=== PATIENT | male | born 1970 | race African-American/Black ===

== ENCOUNTER 2016-06-18 | Emergency (ER) | payer OTHER ==
--- NOTE | 2016-06-18 16:10 | ED ---
General Adult HPI - General Chief complaint: Skin/Abscess/Foreign Body Stated complaint: lumps on both arms Time Seen by Provider: 06/18/16 15:42 Source: patient, RN notes reviewed Mode of arrival: ambulatory Limitations: no limitations - History of Present Illness Initial comments: This 46-year-old male presents with erythema and swelling to bilateral antecubital fossa and into the right side neck. Patient states these just appeared after he was getting out of the shower. Patient states they also itch. Patient states he has been using a new detergent but this is the only thing new in his routine. Patient is not on any medication. Patient denies any recent blood draws or plasma donation or IV drug use. Patient denies any fever/chills. Patient denies any pain to the areas of swelling. Patient states this has never happened before. Patient denies any recent shortness breath, chest pain, abdominal pain, nausea/vomiting/diarrhea, back pain, numbness, tingling, hematuria, headache, or visual changes, or any other complaints. - Related Data Previous Rx's Medication Instructions Recorded Cephalexin [Keflex] 500 mg PO Q12HR 5 Days 06/18/16 diphenhydrAMINE [Benadryl] 25 mg PO BID 3 Days 06/18/16 Allergies Allergy/AdvReac Type Severity Reaction Status Date / Time morphine AdvReac Nausea & Verified 06/18/16 15:41 Vomiting Review of Systems ROS Statement: Those systems with pertinent positive or pertinent negative responses have been documented in the HPI. ROS Other: All systems not noted in ROS Statement are negative. Past Medical History Additional Past Medical History / Comment(s): back pain History of Any Multi-Drug Resistant Organisms: MRSA Date of last positivie culture/infection: 03/13/15 MDRO Source:: BUTTOCK Past Surgical History: No Surgical Hx Reported Past Psychological History: No Psychological Hx Reported Smoking Status: Current every day smoker Past Alcohol Use History: Occasional Past Drug Use History: Marijuana General Exam - General Exam Comments Initial Comments: General: The patient is awake and alert, in no distress, and does not appear acutely ill. Neck: The neck is supple, there is no tenderness or JVD. Cardiovascular: There is a regular rate and rhythm. No murmur, rub or gallop is appreciated. Respiratory: Lungs are clear to auscultation, respirations are non-labored, breath sounds are equal. No wheezes, stridor, rales, or rhonchi. Musculoskeletal: Full range of motion, strength 5/5 in Sensation intact. Radial pulses 2+ bilaterally. Neurological: A&O x 3. CN II-XII intact, There are no obvious motor or sensory deficits. Coordination appears grossly intact. Speech is normal. Skin: There is an area of erythema, warmth, swelling to the left and right antecubital fossae. There is also a smaller area of erythema and mild swelling to the right side neck. None of these areas are tender to palpation. The areas are approximately 5 cm in diameter to the left antecubital fossa, 2 cm to the right antecubital fossa an approximately 1 cm in diameter to the right side neck. There are chronic scar is noted to the bilateral antecubital fossae. Skin is warm and dry and no rashes or lesions are noted. Psychiatric: Normal mood and affect. Limitations: no limitations Course Vital Signs 06/18/16 15:43 Temperature 97.1 F L Pulse Rate 89 Respiratory 18 Rate Blood Pressure 126/70 O2 Sat by Pulse 97 Oximetry Medical Decision Making - Medical Decision Making This 46-year-old male presents with swelling to bilateral arms and the neck that is pruritic. On physical exam There is an area of erythema, warmth, swelling to the left and right antecubital fossa. There is also a smaller area of erythema and mild swelling to the right side neck. None of these areas are tender to palpation. I discussed with patient that this could be a start of a cellulitis. I discussed the patient was given a course of antibiotics. I discussed the patient should also take Benadryl as he states these areas are pruritic and he has used a new soap. I discussed return parameters. I discussed the patient should follow-up with his PCP in one to 2 days or return to the [facility] for any worsening symptoms or for any further concerns. Patient was receptive to this plan and patient will be discharged home. Disposition Clinical Impression: Cellulitis Disposition: HOME SELF-CARE Condition: Good Instructions: Cellulitis (ED) Additional Instructions: Please finish the entire course of antibiotics. Please use Benadryl as prescribed. Please monitor for signs and symptoms of worsening erythema, swelling and warmth and tenderness. Please follow-up with the PCP in 1-2 days or return to the [facility] for any worsening symptoms or for any further concerns. Prescriptions: Cephalexin [Keflex] 500 mg PO Q12HR 5 Days diphenhydrAMINE [Benadryl] 25 mg PO BID 3 Days Referrals: Kaden Navarro MD [REFERRING] - 1-2 days Mica Barajas MD [STAFF PHYSICIAN] - 1-2 days Time of Disposition: 16:07
== END 2016-06-18 16:13 | disposition home or self-care (01) ==
CPT/HCPCS: 99282

== ENCOUNTER → 2017-03-09 | Outpatient (CLI) | payer OTHER ==
--- NOTE | 2017-03-09 11:49 | XR ---
EXAMINATION TYPE: XR chest 2V DATE OF EXAM: 03/09/2017 COMPARISON: NONE TECHNIQUE: PA and lateral views submitted. HISTORY: Wellness check FINDINGS: The lungs are clear and there is no pneumothorax, pleural effusion, or focal pneumonia. IMPRESSION: 1. No acute process.
--- NOTE | 2017-03-09 11:53 | XR ---
EXAM TYPE: LUMBAR SPINE X RAY SERIES COMPARISON: 09/24/2015 HISTORY: Lower back pain TECHNIQUE: 4 views are submitted. FINDINGS: Alignment is anatomic. The pedicles are intact. The transverse processes are intact. There is no s pondylolysis or spondylolisthesis. Hypertrophic and degenerative change of the spine noted. Hypertro phic changes result in foraminal encroachment at L3-S1 due to severe degenerative disc disease. IMPRESSION: 1. Severe multilevel degenerative disc disease correlate with MRI.
[2017-03-09 12:19] LABS: ALT 97 U/L (21-72); AST 61 U/L (17-59); Alkaline Phosphatase 96 U/L (38-126); Anion Gap 10 mmol/L; Blood Urea Nitrogen 15 mg/dL (9-20); Calcium 9.4 mg/dL (8.4-10.2); Carbon Dioxide 28 mmol/L (22-30); Chloride 102 mmol/L (98-107); Cholesterol 190 mg/dL (<200); Glucose 79 mg/dL (74-99); HDL Cholesterol 92 mg/dL (40-60); Non-African American GFR(MDRD) >60 (>60 ml/min/1.73 sqM); Potassium 4.4 mmol/L (3.5-5.1); Sodium 140 mmol/L (137-145); Total Bilirubin 0.9 mg/dL (0.2-1.3); Total Protein 7.7 g/dL (6.3-8.2)
[2017-03-09 12:29] LABS: CH 29.4; CHCM 31.1; HCT 46.6 % (39.0-53.0); HDW 2.58; HGB 14.3 gm/dL (13.0-17.5); Hypochromasia Slight; MCH 29.2 pg (25.0-35.0); MCHC 30.7 g/dL (31.0-37.0); MCV 95.1 fL (80.0-100.0); Mean Platelet Volume 6.7; RDW 12.2 % (11.5-15.5); WBC 4.4 k/uL (3.8-10.6)
[2017-03-09 12:49] LABS: Prostate Specific Antigen 2.59 ng/mL (0.00-4.00)
[2017-03-09 13:00] LABS: Appearance,Urine Clear (Clear); Bilirubin,Urine Negative (Negative); Glucose,Urine (UA) Negative (Negative); Ketones,Urine Negative (Negative); Leukocyte Esterase,Urine Trace (Negative); Nitrite,Urine Negative (Negative); PH, Urine 6.5 (5.0-8.0); Particle Count 355; Protein,Urine Negative (Negative); RBC,Urine <1 /hpf (0-5); Specific Gravity,Urine 1.008 (1.001-1.035); UA Billing (MACRO vs. MICRO) MICRO; Urobilinogen,Urine <2.0 mg/dL (<2.0); WBC,Urine 2 /hpf (0-5)
== END | disposition home or self-care (01) ==
LOC: RADXRMAIN 11:16
PROVIDERS: ATTEND Internal Medicine
DX: Z00.00 Encounter for general adult medical examination without abnormal findings (principal); I11.9 Hypertensive heart disease without heart failure; K21.0 Gastro-esophageal reflux disease with esophagitis; M54.5 Low back pain
CPT/HCPCS: 71020; 72110; 80053; 80061; 81001; 82272; 84153; 84439; 84443; 85027

== ENCOUNTER → 2017-04-06 | Outpatient (CLI) | payer OTHER ==
[2017-04-06 16:12] LABS: ALT 135 U/L (21-72); AST 79 U/L (17-59)
== END | disposition home or self-care (01) ==
LOC: LABWHC1 15:34
PROVIDERS: ATTEND Internal Medicine
DX: R94.5 Abnormal results of liver function studies (principal)
CPT/HCPCS: 36415; 84450; 84460

== ENCOUNTER → 2017-04-21 | Outpatient (CLI) | payer OTHER ==
--- NOTE | 2017-04-21 10:04 | US ---
EXAMINATION TYPE: US abdomen complete DATE OF EXAM: 04/21/2017 COMPARISON: NONE CLINICAL HISTORY: R94.5 ABN Liver Function Test. No symptoms per patient EXAM MEASUREMENTS: Liver Length: 16.2 cm Gallbladder Wall: 0.2 cm CBD: 0.5 cm Spleen: 10.6 cm Right Kidney: 11.8 x 5.9 x 5.4 cm Left Kidney: 11.6 x 5.2 x 6.0 cm Pancreas: wnl Liver: wnl Gallbladder: fundal fold seen Evidence for sonographic Castillo's sign: no CBD: wnl Spleen: wnl Right Kidney: wnl Left Kidney: wnl Upper IVC: wnl Abd Aorta: limited due to bowel gas The liver is homogenous. The intrahepatic portion of the IVC and proximal abdominal aorta are within normal limits. There is no evidence of cholelithiasis. Common bile duct is unremarkable. The visu alized portions of the pancreas are homogenous. The spleen is unremarkable. Kidneys are symmetric a nd free of hydronephrosis. No renal lesions are seen. IMPRESSION: No significant abnormality appreciated.
== END | disposition home or self-care (01) ==
LOC: RADUSWWP 09:05
PROVIDERS: ATTEND Internal Medicine
DX: R94.5 Abnormal results of liver function studies (principal)
CPT/HCPCS: 76700; 80074

== ENCOUNTER → 2017-06-24 | Outpatient (CLI) | payer OTHER ==
[2017-06-26 11:37] LABS: HCV Quant Log 5.79 (<1.08)
== END ==
LOC: LABWHC1 10:13
DX: R76.8 Other specified abnormal immunological findings in serum (principal)
CPT/HCPCS: 36415; 87522; 87902

== ENCOUNTER → 2017-08-12 | Outpatient (CLI) | payer OTHER ==
[2017-08-12 14:40] LABS: Basophils # (A) 0.1 k/uL (0-0.2); Basophils % (A) 1 %; Eosinophils # (A) 0.2 k/uL (0-0.7); Eosinophils % (A) 3 %; HCT 44.8 % (39.0-53.0); HGB 14.7 gm/dL (13.0-17.5); Lymphocytes # (A) 2.3 k/uL (1.0-4.8); Lymphocytes % (A) 42 %; MCH 29.8 pg (25.0-35.0); MCHC 32.8 g/dL (31.0-37.0); MCV 90.7 fL (80.0-100.0); Mean Platelet Volume 6.8; Monocytes # (A) 0.3 k/uL (0-1.0); Monocytes % (A) 5 %; Neutrophils # (A) 2.6 k/uL (1.3-7.7); Neutrophils % (A) 47 %; Platelet Count 302 k/uL (150-450); RBC 4.94 m/uL (4.30-5.90); RDW 12.2 % (11.5-15.5); WBC 5.5 k/uL (3.8-10.6)
[2017-08-12 14:50] LABS: Albumin 4.3 g/dL (3.5-5.0); Bilirubin, Delta 0.3 mg/dL (0.0-0.2); Bilirubin,Unconjugated 0.2 mg/dL (0.0-1.1); Total Bilirubin 0.5 mg/dL (0.2-1.3); Total Protein 7.8 g/dL (6.3-8.2)
== END | disposition home or self-care (01) ==
LOC: LABWHC1 14:11
PROVIDERS: ATTEND Physician Assistant
DX: B18.2 Chronic viral hepatitis C (principal)
CPT/HCPCS: 36415; 80076; 85025

== ENCOUNTER → 2017-11-11 | Outpatient (CLI) | payer OTHER ==
[2017-11-11 12:42] LABS: Basophils % (A) 1 %; Eosinophils # (A) 0.3 k/uL (0-0.7); Eosinophils % (A) 5 %; HCT 43.3 % (39.0-53.0); Lymphocytes # (A) 2.4 k/uL (1.0-4.8); Lymphocytes % (A) 50 %; MCH 29.4 pg (25.0-35.0); MCHC 32.3 g/dL (31.0-37.0); MCV 91.2 fL (80.0-100.0); Mean Platelet Volume 6.4; Monocytes # (A) 0.3 k/uL (0-1.0); Monocytes % (A) 6 %; Neutrophils # (A) 1.7 k/uL (1.3-7.7); Neutrophils % (A) 36 %; Platelet Count 286 k/uL (150-450); RBC 4.75 m/uL (4.30-5.90); RDW 12.5 % (11.5-15.5); WBC 4.7 k/uL (3.8-10.6)
[2017-11-11 12:48] LABS: Prothrombin Time 9.9 sec (9.0-12.0)
[2017-11-11 12:57] LABS: Albumin 3.9 g/dL (3.5-5.0); Bilirubin, Delta 0.2 mg/dL (0.0-0.2); Bilirubin,Unconjugated 0.3 mg/dL (0.0-1.1); Total Bilirubin 0.5 mg/dL (0.2-1.3); Total Protein 6.9 g/dL (6.3-8.2)
[2017-11-12 13:37] LABS: Hepatits C Virus RNA DETECTED (Not detected); LOG HCV IU/mL 5.62 (<1.08)
== END | disposition home or self-care (01) ==
LOC: LABWHC1 11:54
PROVIDERS: ATTEND Physician Assistant
DX: B18.2 Chronic viral hepatitis C (principal)
CPT/HCPCS: 36415; 80076; 85025; 85610; 87522

== ENCOUNTER → 2018-08-24 | Outpatient (CLI) | payer OTHER ==
[2018-08-24 10:58] LABS: HCT 43.3 % (39.0-53.0); HGB 14.3 gm/dL (13.0-17.5); MCHC 33.2 g/dL (31.0-37.0); MCV 90.4 fL (80.0-100.0); Platelet Count 325 k/uL (150-450); RBC 4.79 m/uL (4.30-5.90); RDW 12.9 % (11.5-15.5); WBC 5.5 k/uL (3.8-10.6)
[2018-08-24 16:25] LABS: Albumin 4.6 g/dL (3.80-4.90); Albumin/Globulin Ratio 1.77 (1.60-3.17); Anion Gap 9.3 mmol/L (4.00-12.00); Calcium 9.7 mg/dL (8.7-10.3); Carbon Dioxide 26.7 mmol/L (21.6-31.8); Globulin 2.6 g/dL (1.6-3.3); Potassium 4.6 mmol/L (3.5-5.5); Total Bilirubin 0.6 mg/dL (0.2-1.2); Total Protein 7.2 g/dL (6.2-8.2)
[2018-08-24 16:32] LABS: T4, Free (Free Thyroxine) 1.1 ng/dL (0.80-1.80)
== END | disposition home or self-care (01) ==
LOC: LABWHC1 09:32
PROVIDERS: ATTEND Internal Medicine
DX: Z00.00 Encounter for general adult medical examination without abnormal findings (principal); E78.2 Mixed hyperlipidemia; I11.9 Hypertensive heart disease without heart failure; N40.0 Benign prostatic hyperplasia without lower urinary tract symptoms; B18.2 Chronic viral hepatitis C
CPT/HCPCS: 36415; 80053; 84153; 84439; 84443; 85027

== ENCOUNTER → 2018-09-06 | Outpatient (CLI) | payer OTHER ==
[2018-09-06 17:09] LABS: LDL Cholesterol,Calculated 90.4 mg/dL (0.0-131.0); VLDL Calculation 26.6 mg/dL (5.00-40.00)
== END | disposition home or self-care (01) ==
LOC: LABWHC1 08:41
PROVIDERS: ATTEND Internal Medicine
DX: Z00.00 Encounter for general adult medical examination without abnormal findings (principal); I11.9 Hypertensive heart disease without heart failure; E78.2 Mixed hyperlipidemia; N40.0 Benign prostatic hyperplasia without lower urinary tract symptoms; B18.2 Chronic viral hepatitis C
CPT/HCPCS: 36415; 80061

== ENCOUNTER → 2018-09-28 | Outpatient (CLI) | payer OTHER ==
--- NOTE | 2018-09-28 13:11 | XR ---
EXAMINATION TYPE: XR chest 2V DATE OF EXAM: 09/28/2018 COMPARISON: 03/09/2017 TECHNIQUE: PA and lateral views submitted. HISTORY: Cough FINDINGS: The lungs are clear and there is no pneumothorax, pleural effusion, or focal pneumonia. Hyperinflat ion correlate for COPD mild degenerative change vertebral column. No overt failure. Biapical pleural thickening. IMPRESSION: 1. No acute process.
== END ==
LOC: RADXRMAIN 12:48
PROVIDERS: ATTEND Internal Medicine
DX: R05 Cough (principal)
CPT/HCPCS: 71046

== ENCOUNTER → 2018-11-03 | Outpatient (CLI) | payer OTHER ==
--- NOTE | 2018-11-03 11:35 | XR ---
EXAMINATION TYPE: XR knee complete bilateral DATE OF EXAM: 11/03/2018 COMPARISON: NONE HISTORY: Pain TECHNIQUE: Four views are submitted. FINDINGS: Joint spaces are preserved. Osseous structures are intact. No acute fracture seen. Small amount of fluid in the suprapatellar bursa seen bilaterally. IMPRESSION: 1. No acute fracture or dislocation. 2. Small amount of fluid is seen in the suprapatellar bursa bilaterally.
[2018-11-04 14:47] LABS: Hepatits C Virus RNA DETECTED (Not detected); LOG HCV IU/mL 6.03 (<1.08)
== END | disposition home or self-care (01) ==
LOC: LABWHC1 10:08
DX: M25.561 Pain in right knee (principal); B18.2 Chronic viral hepatitis C
CPT/HCPCS: 36415; 87522

== ENCOUNTER → 2019-02-16 | Outpatient (CLI) | payer OTHER ==
[2019-02-16 13:18] LABS: Basophils # (A) 0.1 k/uL (0-0.2); Basophils % (A) 1 %; Eosinophils # (A) 0.2 k/uL (0-0.7); Eosinophils % (A) 3 %; HCT 43.9 % (39.0-53.0); HGB 14.1 gm/dL (13.0-17.5); Lymphocytes # (A) 2.1 k/uL (1.0-4.8); Lymphocytes % (A) 34 %; MCH 29.3 pg (25.0-35.0); MCHC 32.1 g/dL (31.0-37.0); MCV 91.3 fL (80.0-100.0); Mean Platelet Volume 6.3; Monocytes # (A) 0.4 k/uL (0-1.0); Monocytes % (A) 6 %; Neutrophils # (A) 3.5 k/uL (1.3-7.7); Neutrophils % (A) 55 %; Platelet Count 340 k/uL (150-450); RDW 12.6 % (11.5-15.5); WBC 6.3 k/uL (3.8-10.6)
[2019-02-16 22:16] LABS: Albumin 4.6 g/dL (3.80-4.90); Albumin/Globulin Ratio 1.84 (1.60-3.17); Bilirubin, Conjugated 0.2 mg/dL (0.20-0.40); Bilirubin,Unconjugated 0.5 mg/dL; Globulin 2.5 g/dL (1.6-3.3); Total Bilirubin 0.7 mg/dL (0.3-1.2); Total Protein 7.1 g/dL (6.2-8.2)
[2019-02-18 09:54] LABS: Hepatits C Virus RNA Not detected (Not detected); Hepatits C Virus RNA, Quant <12 IU/mL (<12); LOG HCV IU/mL <1.08 (<1.08)
== END | disposition home or self-care (01) ==
LOC: LABWHC1 12:23
PROVIDERS: ATTEND Physician Assistant
DX: B18.2 Chronic viral hepatitis C (principal)
CPT/HCPCS: 36415; 80076; 85025; 87522

== ENCOUNTER → 2019-03-03 | Outpatient (CLI) | payer OTHER ==
[2019-03-03 10:20] LABS: Basophils # (A) 0.1 k/uL (0-0.2); Basophils % (A) 1 %; Eosinophils # (A) 0.3 k/uL (0-0.7); Eosinophils % (A) 4 %; HCT 43.3 % (39.0-53.0); HGB 13.5 gm/dL (13.0-17.5); Lymphocytes # (A) 2.4 k/uL (1.0-4.8); Lymphocytes % (A) 40 %; MCH 29.4 pg (25.0-35.0); MCHC 31.2 g/dL (31.0-37.0); MCV 94.2 fL (80.0-100.0); Mean Platelet Volume 6.3; Monocytes # (A) 0.3 k/uL (0-1.0); Monocytes % (A) 6 %; Neutrophils # (A) 2.8 k/uL (1.3-7.7); Neutrophils % (A) 47 %; Platelet Count 296 k/uL (150-450); RDW 12.5 % (11.5-15.5); WBC 5.9 k/uL (3.8-10.6)
[2019-03-03 10:29] LABS: INR 0.9 (<1.2); Prothrombin Time 9.9 sec (9.0-12.0)
[2019-03-03 17:43] LABS: ALT 17 U/L (10-49); AST 22 U/L (14-35); Albumin/Globulin Ratio 1.88 (1.60-3.17); Alkaline Phosphatase 105 U/L (41-126); Bilirubin, Conjugated <0.20 mg/dL (0.20-0.40); Globulin 2.4 g/dL (1.6-3.3); Total Bilirubin 0.4 mg/dL (0.2-1.2); Total Protein 6.9 g/dL (6.2-8.2)
[2019-03-04 15:19] LABS: Hepatits C Virus RNA Not detected (Not detected); Hepatits C Virus RNA, Quant <12 IU/mL (<12); LOG HCV IU/mL <1.08 (<1.08)
== END | disposition home or self-care (01) ==
LOC: LABWHC1 09:44
PROVIDERS: ATTEND Physician Assistant
DX: B18.2 Chronic viral hepatitis C (principal)
CPT/HCPCS: 36415; 80076; 85025; 85610; 87522

== ENCOUNTER 2021-09-14 13:12 | Emergency (ER) | payer OTHER ==
[2021-09-14 13:28] VITALS: RESP 18
[2021-09-14 14:53] VITALS: TEMP 98.1
[2021-09-14] MEDS ORDERED: VANCOMYCIN IV PER PHARMACY 1 EACH MISC MISCELLANE PRN (16:28)
[2021-09-14] MEDS ORDERED: KETOROLAC 15 MG/ML 1 ML VIAL IVP STA (16:30)
[2021-09-14] MEDS ORDERED: VANCOMYCIN 1,500 MG in SODIUM CHLORIDE 0.9% 250 ML IVPB SCH (17:00)
--- NOTE | 2021-09-14 17:24 | XR ---
EXAMINATION TYPE: XR foot complete LT DATE OF EXAM: 09/14/2021 COMPARISON: NONE HISTORY: Infection TECHNIQUE: 3 views FINDINGS: Metatarsals are intact. I see no fracture nor dislocation. There are no erosions. Joint spa jessica are normal. IMPRESSION: Negative left foot exam. No fracture
[2021-09-14 17:47] LABS: Basophils # (A) 0.1 k/uL (0-0.2); Basophils % (A) 1 %; Eosinophils # (A) 0.5 k/uL (0-0.7); Eosinophils % (A) 7 %; HCT 43.5 % (39.0-53.0); Lymphocytes # (A) 2.2 k/uL (1.0-4.8); Lymphocytes % (A) 30 %; MCHC 32.1 g/dL (31.0-37.0); MCV 93.4 fL (80.0-100.0); Mean Platelet Volume 7.1; Monocytes # (A) 0.4 k/uL (0-1.0); Monocytes % (A) 5 %; Neutrophils # (A) 4.2 k/uL (1.3-7.7); Neutrophils % (A) 57 %; Platelet Count 343 k/uL (150-450); RBC 4.66 m/uL (4.30-5.90); WBC 7.4 k/uL (3.8-10.6)
[2021-09-14 17:58] LABS: African American GFR (CKD) >90 (>60 ml/min/1.73 sqM); Anion Gap 5 mmol/L; Blood Urea Nitrogen 17 mg/dL (9-20); Calcium 9.2 mg/dL (8.4-10.2); Carbon Dioxide 30 mmol/L (22-30); Chloride 103 mmol/L (98-107); Glucose 81 mg/dL (74-99); Non-African American GFR(CKD) >90 (>60 ml/min/1.73 sqM); Potassium 4.4 mmol/L (3.5-5.1); Sodium 138 mmol/L (137-145)
--- NOTE | 2021-09-14 18:12 | ED ---
General Adult HPI - General Chief complaint: Extremity Problem,Nontraumatic Stated complaint: foot infection Time Seen by Provider: 09/14/21 16:30 Source: patient, RN notes reviewed, old records reviewed Mode of arrival: ambulatory Limitations: no limitations - History of Present Illness Initial comments: Patient is a 51-year-old male with past medical history remarkable for chronic back pain who presents emergency department concern for left foot infection. States symptoms have been ongoing for multiple days. Has been using fungal cream, but states it feels worse. It is located between the left foot digits 4 and 5. Alsoswelling over the fourth and fifth digits. Is concerned of a worsening infection. Denies any fevers, chills. Denies any other symptoms including erythema, swelling. Presents over concern for worsening foot infection. No history of diabetes. Has no PCP. - Related Data Previous Rx's Medication Instructions Recorded Sulfamethox-Tmp 800-160Mg [Bactrim 1 tab PO Q12HR 7 Days #14 tab 09/14/21 DS 800-160 mg] Allergies Allergy/AdvReac Type Severity Reaction Status Date / Time trazodone Allergy Swelling Verified 09/14/21 16:30 morphine AdvReac Nausea & Verified 09/14/21 16:30 Vomiting Review of Systems ROS Statement: Those systems with pertinent positive or pertinent negative responses have been documented in the HPI. Review of Systems: CONST: Denies fever EYES: Denies blurry vision ENT: Denies nasal congestion C/V: Denies Chest pain RESP: Denies shortness of breath GI: Denies abdominal pain : Denies dysuria SKIN: Endorses rash, pain MSK: Denies joint pain. NEURO: Denies headache ROS Other: All systems not noted in ROS Statement are negative. Past Medical History Additional Past Medical History / Comment(s): back pain History of Any Multi-Drug Resistant Organisms: MRSA Date of last positivie culture/infection: 03/13/15 MDRO Source:: BUTTOCK Past Surgical History: No Surgical Hx Reported Past Psychological History: No Psychological Hx Reported Smoking Status: Never smoker Past Alcohol Use History: Occasional Past Drug Use History: Marijuana General Exam - General Exam Comments Initial Comments: General: Appears in no acute distress. HEAD: Normal with no signs of head trauma. EYES: PERRLA, EOMI, conjunctiva normal, no discharge. ENT: Hearing grossly intact, normal oropharynx. RESPIRATORY: Clear breath sounds bilaterally. No wheezes, rales, or rhonchi. C/V: Regular rate and rhythm. S1 and S2 auscultated, no edema, peripheral pulses 2+ and intact throughout ABD: Abd is soft, nontender, nondistended EXT: Normal range of motion, no obvious deformity SKIN: Erythema and peeling skin located between the left fourth and fifth digits with left fourth and fifth skin erythema. Mild tenderness to palpation over the joints. No areas of fluctuance or discharge. Neurovascularly intact throughout. NEURO: Alert and oriented 4.. No focal sensory strength deficits. Limitations: no limitations Course Vital Signs 09/14/21 09/14/21 13:26 14:50 Temperature 97.6 F 98.1 F Pulse Rate 97 97 Respiratory 18 18 Rate Blood Pressure 140/72 120/95 O2 Sat by Pulse 98 98 Oximetry Medical Decision Making - Medical Decision Making Based on the patient's presentation and physical exam, I'm concerned for left foot cellulitis versus infection. Does not follow-up regularly with the PCP. He is on antifungal cream at home. We will obtain basic labs as well as an x- ray left foot. He was in agreement this plan. He will receive a dose of IV antibiotics as he will likely be discharged home on antibiotics as well. Patient was in agreement this plan. Cultures will also be obtained as we are administering antibiotics. He refuses analgesia at this time other than Toradol. He will be given IV fluids. Patient's lavatory studies are relatively unremarkable. Lactic acid is within normal limits. Left foot x-ray is unremarkable and shows no acute findings. Patient is receiving his vancomycin at this time. I discussed the findings with him. He expressed understanding. He will be given a PCP follow-up as well as a prescription for antibiotics. Patient was in agreement this plan. He will be discharged home in good condition. I will provide the patient with a prescription for Bactrim DS. I instructed the patient to follow up with their PCP in the next 3 days. I provided contact information for follow up with Dr. Sweet. I explained that the patient should return to the emergency department if they experience any worsening symptoms. Strict return precautions were discussed with the patient. The patient expressed understanding of these instructions. I answered all questions that the patient had. The patient was discharged home in good condition with their prescriptions and follow up information. - Lab Data Result diagrams: 09/14/21 17:40 09/14/21 17:40 Lab Results 09/14/21 09/14/21 09/14/21 Range/Units 17:40 17:40 17:40 WBC 7.4 (3.8-10.6) k/uL RBC 4.66 (4.30-5.90) m/uL Hgb 14.0 (13.0-17.5) gm/dL Hct 43.5 (39.0-53.0) % MCV 93.4 (80.0-100.0) fL MCH 30.0 (25.0-35.0) pg MCHC 32.1 (31.0-37.0) g/dL RDW 12.0 (11.5-15.5) % Plt Count 343 (150-450) k/uL MPV 7.1 Neutrophils % 57 % Lymphocytes % 30 % Monocytes % 5 % Eosinophils % 7 % Basophils % 1 % Neutrophils # 4.2 (1.3-7.7) k/uL Lymphocytes # 2.2 (1.0-4.8) k/uL Monocytes # 0.4 (0-1.0) k/uL Eosinophils # 0.5 (0-0.7) k/uL Basophils # 0.1 (0-0.2) k/uL Sodium 138 (137-145) mmol/L Potassium 4.4 (3.5-5.1) mmol/L Chloride 103 (98-107) mmol/L Carbon Dioxide 30 (22-30) mmol/L Anion Gap 5 mmol/L BUN 17 (9-20) mg/dL Creatinine 0.91 (0.66-1.25) mg/dL Est GFR (CKD-EPI)AfAm >90 (>60 ml/min/1.73 sqM) Est GFR (CKD-EPI)NonAf >90 (>60 ml/min/1.73 sqM) Glucose 81 (74-99) mg/dL Plasma Lactic Acid Roque 1.3 (0.7-2.0) mmol/L Calcium 9.2 (8.4-10.2) mg/dL Disposition Clinical Impression: Cellulitis Disposition: HOME SELF-CARE Condition: Good Instructions (If sedation given, give patient instructions): Cellulitis (ED) Prescriptions: Sulfamethox-Tmp 800-160Mg [Bactrim DS 800-160 mg] 1 tab PO Q12HR 7 Days #14 tab Is patient prescribed a controlled substance at d/c from ED?: No Referrals: None,Stated [Primary Care Provider] - 1-2 days Kingston Sweet MD [STAFF PHYSICIAN] - 1-2 days
--- NOTE | 2021-09-14 18:30 | ED ---
Medical Decision Making - Lab Data Result diagrams: 09/14/21 17:40 09/14/21 17:40 Lab Results 09/14/21 09/14/21 09/14/21 Range/Units 17:40 17:40 17:40 WBC 7.4 (3.8-10.6) k/uL RBC 4.66 (4.30-5.90) m/uL Hgb 14.0 (13.0-17.5) gm/dL Hct 43.5 (39.0-53.0) % MCV 93.4 (80.0-100.0) fL MCH 30.0 (25.0-35.0) pg MCHC 32.1 (31.0-37.0) g/dL RDW 12.0 (11.5-15.5) % Plt Count 343 (150-450) k/uL MPV 7.1 Neutrophils % 57 % Lymphocytes % 30 % Monocytes % 5 % Eosinophils % 7 % Basophils % 1 % Neutrophils # 4.2 (1.3-7.7) k/uL Lymphocytes # 2.2 (1.0-4.8) k/uL Monocytes # 0.4 (0-1.0) k/uL Eosinophils # 0.5 (0-0.7) k/uL Basophils # 0.1 (0-0.2) k/uL Sodium 138 (137-145) mmol/L Potassium 4.4 (3.5-5.1) mmol/L Chloride 103 (98-107) mmol/L Carbon Dioxide 30 (22-30) mmol/L Anion Gap 5 mmol/L BUN 17 (9-20) mg/dL Creatinine 0.91 (0.66-1.25) mg/dL Est GFR (CKD-EPI)AfAm >90 (>60 ml/min/1.73 sqM) Est GFR (CKD-EPI)NonAf >90 (>60 ml/min/1.73 sqM) Glucose 81 (74-99) mg/dL Plasma Lactic Acid Roque 1.3 (0.7-2.0) mmol/L Calcium 9.2 (8.4-10.2) mg/dL Disposition Clinical Impression: Cellulitis Disposition: HOME SELF-CARE Condition: Good Instructions (If sedation given, give patient instructions): Cellulitis (ED) Prescriptions: Sulfamethox-Tmp 800-160Mg [Bactrim DS 800-160 mg] 1 tab PO Q12HR 7 Days #14 tab Is patient prescribed a controlled substance at d/c from ED?: No Referrals: Kingston Sweet MD [STAFF PHYSICIAN] - 1-2 days None,Stated [Primary Care Provider] - 1-2 days Time of Disposition: 18:05
[2021-09-14 18:47] VITALS: BP 128/84; PULSE 76
== END 2021-09-14 20:44 | disposition home or self-care (01) ==
LOC: EC 13:12
DX: L08.9 Local infection of the skin and subcutaneous tissue, unspecified (principal); Z88.8 Allergy status to other drugs, medicaments and biological substances; Z88.5 Allergy status to narcotic agent
CPT/HCPCS: 36415; 80048; 83605; 85025; 87040; 73630; 99283; 96365; 96366; 96375; J3370; J1885

== ENCOUNTER 2023-05-19 15:26 | Emergency (ER) | payer OTHER ==
--- NOTE | 2023-05-19 16:01 | ED ---
Lower Extremity Injury HPI - General Source: patient, RN notes reviewed <Pratibha Encinas - Last Filed: 05/19/23 16:01> - General Source: patient, RN notes reviewed Mode of arrival: ambulatory Limitations: no limitations <Sondra Cisneros - Last Filed: 05/20/23 00:57> - General Chief Complaint: Extremity Problem,Nontraumatic Stated Complaint: Right knee Pain Time Seen by Provider: 05/19/23 16:01 - History of Present Illness Initial Comments: Patient is a 53-year-old male presented ER with chief complaint of right knee pain. Patient states that it has been swelling up on causing more pain at night than usual. Patient denies any injuries, chest pain, shortness of breath, fevers, chills, night sweats. (Pratibha Encinas) This is a 53-year-old male who presents to the emergency department for right knee swelling. Patient states that over the last several weeks he has had problems with his right knee becoming increasingly swollen towards the end of the day. This seems to improve when he gets up in the morning, and then worsens throughout the day. He has not noticed any redness with this. Pain has not moved up or down the leg, it remains localized to the knee. He does wear a knee brace on occasions. Not currently taking any medication for pain management. He does report several injuries in the past, but nothing recently. (Sondra Cisneros) - Related Data Previous Rx's Medication Instructions Recorded Sulfamethox-Tmp 800-160Mg [Bactrim 1 tab PO Q12HR 7 Days #14 tab 09/14/21 DS 800-160 mg] Ibuprofen 800 mg PO Q8H PRN #30 tab 05/19/23 methocarbamoL [Robaxin-750] 1,500 mg PO TID PRN #30 tab 05/19/23 Allergies Allergy/AdvReac Type Severity Reaction Status Date / Time trazodone Allergy Swelling Verified 05/19/23 16:08 morphine AdvReac Nausea & Verified 05/19/23 16:08 Vomiting Review of Systems ROS Other: All systems not noted in ROS Statement are negative. <Pratibha Encinas - Last Filed: 05/19/23 16:01> ROS Other: All systems not noted in ROS Statement are negative. <Sondra Cisneros - Last Filed: 05/20/23 00:57> ROS Statement: Those systems with pertinent positive or pertinent negative responses have been documented in the HPI. Past Medical History Additional Past Medical History / Comment(s): back pain History of Any Multi-Drug Resistant Organisms: MRSA Date of last positivie culture/infection: 03/13/15 MDRO Source:: BUTTOCK Past Surgical History: No Surgical Hx Reported Past Psychological History: No Psychological Hx Reported Smoking Status: Never smoker Past Alcohol Use History: Occasional Past Drug Use History: Marijuana <Pratibha Encinas - Last Filed: 05/19/23 16:01> General Exam General appearance: alert, in no apparent distress <Pratibha Encinas - Last Filed: 05/19/23 16:01> General appearance: alert, in no apparent distress Head exam: Present: atraumatic, normocephalic, normal inspection Respiratory exam: Present: normal lung sounds bilaterally. Absent: respiratory distress, wheezes, rales, rhonchi, stridor Cardiovascular Exam: Present: regular rate, normal rhythm, normal heart sounds. Absent: systolic murmur, diastolic murmur, rubs, gallop, clicks Extremities exam: Present: other (Mild swelling and tenderness over the right patella. No erythema or warmth. Full range of motion. 2+ DP and PT pulses.) Neurological exam: Present: alert, oriented X3, CN II-XII intact Psychiatric exam: Present: normal affect, normal mood <Sondra Cisneros - Last Filed: 05/20/23 00:57> Course Vital Signs 05/19/23 05/19/23 16:05 19:33 Temperature 98.8 F 98.1 F Pulse Rate 77 68 Respiratory 18 15 Rate Blood Pressure 135/86 155/91 O2 Sat by Pulse 97 97 Oximetry Medical Decision Making <Pratibha Encinas - Last Filed: 05/19/23 16:01> - Radiology Data Radiology results: report reviewed, image reviewed <Sondra Cisneros - Last Filed: 05/20/23 00:57> - Medical Decision Making I performed the quick note portion of the exam. Electronically signed by Pratibha Encinas PA-C (Pratibha Encinas) This is a 53-year-old male who presents to the emergency department for right knee pain and swelling. Was pt. sent in by a medical professional or institution? @ -No Did you speak to anyone other than the patient for history? @ -No Did you review nursing and triage notes? @ -Yes, and I agree, it is accurate with regards to the patient's symptoms. Were old charts reviewed? @ -No Differential Diagnosis? @ -Differential Musculoskeletal: Muscular strain, contusion, ligament sprain, fracture, arthritis, septic arthritis, bursitis, cellulitis, muscle spasm, nerve compression, DVT, arterial occlusion, herpes zoster, electrolyte abnormality, tumor.... This is not meant to be in all inclusive list EKG interpreted by me (3pts min.)? @ -Not obtained X-rays interpreted by me (1pt min.)? @ -X-ray of the bilateral knees obtained. My interpretation identifies no acute fractures. CT interpreted by me (1pt min.)? @ -Not obtained U/S interpreted by me (1pt. min.)? @ -Not obtained What testing was considered but not performed? (CT, X-rays, U/S, labs)? Why? @ -None What meds were considered but not given? Why? @ -None Did you discuss the management of the patient with other professionals? @ -No Did you reconcile home meds? @ -No Was smoking cessation discussed for >3mins.? @ -I discussed smoking cessation for greater than 3 minutes. The risk of smoking were discussed with the patient including but not limited to risks of cancer, stroke, coronary artery disease and COPD. Also discussed with patient were multiple methods of quitting smoking. Lastly we discussed the financial cost of smoking. Was critical care preformed (if so, how long)? @ -No Were there social determinants of health that impacted care today? How? (Homelessness, low income, unemployed, alcoholism, drug addiction, transportation, low edu. Level, literacy, decrease access to med. care, [facility], rehab)? @ -No Was there de-escalation of care discussed even if they declined? (Discuss DNR or withdrawal of care, Hospice)? @ -No What co-morbidities impacted this encounter? (DM, HTN, Smoking, COPD, CAD, Cancer, CVA, Hep., AIDS, mental health diagnosis, sleep apnea, morbid obesity)? @ -Smoking Was patient admitted / discharged? @ -Discharged. X-ray of the bilateral knees obtained revealing mild bilateral tricompartmental arthritis. There were otherwise no acute findings. On physical examination there appeared to be mild swelling and tenderness without any discoloration or increased heat. Advised that symptoms are likely related to arthritis and overuse. Symptoms were controlled the emergency department and he was given a prescription for ibuprofen and Robaxin. Information for orthopedic follow-up provided as well. Undiagnosed new problem with uncertain prognosis? @ -None Drug Therapy requiring intensive monitoring for toxicity (Heparin, Nitro, Insulin, Cardizem)? @ -None Were any procedures done? @ -None Diagnosis/symptom? @ -Right knee pain/swelling Acute, or Chronic, or Acute on Chronic? @ -Acute Uncomplicated (without systemic symptoms) or Complicated (systemic symptoms)? @ -Uncomplicated Side effects of treatment? @ -None Exacerbation, Progression, or Severe Exacerbation] @ -Not applicable Poses a threat to life or bodily function? @ -No Return precautions reviewed in depth, the patient is instructed to return to the emergency department with any new, worsening, or concerning symptoms. Patient verbalized understanding. This case was discussed in detail with the attending ED physician, Dr. Joseph. Presentation, findings, and treatment plan discussed in detail as well. (Sondra Cisneros) Disposition <Pratibha Encinas - Last Filed: 05/19/23 16:01> Is patient prescribed a controlled substance at d/c from ED?: No <Sondra Cisneros - Last Filed: 05/20/23 00:57> Clinical Impression: Swelling of right knee joint, Osteoarthritis Disposition: HOME SELF-CARE Instructions (If sedation given, give patient instructions): Osteoarthritis (ED), Swollen Knee Joint (ED) Additional Instructions: Return to the emergency department with any new, worsening, or concerning symptoms. Alternate with ibuprofen and Tylenol as needed for pain relief. You can take the muscle relaxant as 1-2 tablets up to 3-4 times daily. Be aware that this may make you drowsy. Elevate the leg as much as possible. Contact orthopedics as listed below first thing in the morning for a follow-up a ppointment. Prescriptions: Ibuprofen 800 mg PO Q8H PRN #30 tab PRN Reason: Pain methocarbamoL [Robaxin-750] 1,500 mg PO TID PRN #30 tab PRN Reason: Pain Referrals: Michael Bartlett MD [Primary Care Provider] - 1-2 days Félix Castillo MD [STAFF PHYSICIAN] - 1-2 days
--- NOTE | 2023-05-19 17:34 | XR ---
EXAMINATION TYPE: XR knee complete bilateral DATE OF EXAM: 05/19/2023 5:26 PM CLINICAL INDICATION:Male, 53 years old with history of pain; [facility] COMPARISON: 11/03/2018. TECHNIQUE: XR knee complete bilateral; examined in Frontal, lateral and oblique projections. FINDINGS: No evidence of any acute osseous pathology, soft tissue swelling, or joint effusion is no marline. Tricompartmental osteophyte formation involving the femoral condyles, tibial plateau and patella. Mi ld joint space narrowing. IMPRESSION: 1. No acute osseous pathology. 2. Mild bilateral tricompartmental osteoarthritic changes.
[2023-05-19] MEDS ORDERED: DEXAMETHASONE SOD PHOSPHATE 10 MG/ML 1 ML VIAL IM STA (19:21)
[2023-05-19] MEDS ORDERED: KETOROLAC 15 MG/ML 1 ML VIAL IM STA (19:21)
[2023-05-19 19:51] VITALS: BP 155/91; PULSE 68; RESP 15; TEMP 98.1
[2023-05-19] MEDS ORDERED: IBUPROFEN 600 MG STARTER PACK 4 TAB BTL PO STA (20:11)
[2023-05-19] MEDS ORDERED: traMADol 50 MG STARTER PACK 3 TAB BTL PO STA (20:11)
== END 2023-05-19 20:23 | disposition home or self-care (01) ==
LOC: EC 15:26
DX: M17.11 Unilateral primary osteoarthritis, right knee (principal); F12.90 Cannabis use, unspecified, uncomplicated; Z88.5 Allergy status to narcotic agent; Z88.8 Allergy status to other drugs, medicaments and biological substances
CPT/HCPCS: 73562; 99283; 96372 ×2; J1100; J1885